=== PATIENT | male | born 1955 | race Caucasian/White ===

== ENCOUNTER 2022-03-04 14:51 | Emergency (ER) | payer MEDICARE, SELFPAY ==
[2022-03-04 15:02] VITALS: BP 164/67; PULSE 67; RESP 18; TEMP 38.1; O2SAT 97
--- NOTE | 2022-03-04 16:32 | PC.NURSE ---
called pt to go back to a room and no answer.
== END 2022-03-04 16:57 | disposition left against medical advice (07) ==
PROVIDERS: PCP Family Medicine
DX: R05.9 Cough, unspecified (principal)
CPT/HCPCS: 99199